=== PATIENT | male | born 1975 | race Two or more races ===

== ENCOUNTER 2021-02-16 19:16 | Emergency (ER) | payer OTHER ==
[~2021-02-16] VITALS: Ht 188 cm; Wt 95.4 kg
[2021-02-16 19:25] VITALS: BP 143/93
[2021-02-16] MEDS ORDERED: LIDOCAINE 1%/EPI 1:100,000 20 ML VIAL. INJ ONE (19:45)
--- NOTE | 2021-02-16 19:53 | PHYS DOC ---
Past Medical History Past Medical History: No Pertinent History (AURA CARRIZALES APRN) Past Surgical History: No Surgical History (AURA CARRIZALES APRN) General Adult EDM: Chief Complaint: LACERATION/AVULSION HPI: HPI: Patient is a 46-year-old male that presents today with a laceration on his left foot. Patient states he was walking barefoot into his kitchen area he said there was a knife on the floor and he rubbed up against that thus cutting his foot. Currently no uncontrolled hemorrhaging noted. Patient states he does not know when his last tetanus shot was. 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 [] Eyes: Denies change in visual acuity. [] HENT: Denies nasal congestion or sore throat. [] Respiratory: Denies cough or shortness of breath. [] Cardiovascular: Denies chest pain or edema. [] GI: Denies abdominal pain, nausea, vomiting, bloody stools or diarrhea. [] : Denies dysuria. [] Musculoskeletal: Denies back pain or joint pain. [] Integument: Laceration left foot Neurologic: Denies headache, focal weakness or sensory changes. [] Endocrine: Denies polyuria or polydipsia. [] Lymphatic: Denies swollen glands. [] Psychiatric: Denies depression or anxiety. [] (AURA CARRIZALES PRODUCT DEVELOPMENT WORKER) Heart Score: C/O Chest Pain: N/A Risk Factors: Risk Factors: DM, Current or recent (<one month) smoker, HTN, HLP, family history of CAD, obesity. Risk Scores: Score 0 - 3: 2.5% MACE over next 6 weeks - Discharge Home Score 4 - 6: 20.3% MACE over next 6 weeks - Admit for Clinical Observation Score 7 - 10: 72.7% MACE over next 6 weeks - Early Invasive Strategies (AURA CARRIZALES PRODUCT DEVELOPMENT WORKER) Current Medications: Current Medications Medications (Trade) Dose Ordered Sig/Robbi Start Time Stop Time Status Last Admin Dose Admin Diphtheria/ Tetanus/Acell Pertussis (ADACEL TDap SYRINGE) 0.5 ml ONCE ONCE 02/16/21 20:00 02/16/21 20:01 UNV Lidocaine/ Epinephrine (LIDOCAINE 1%-EPI 1:100,000 Multi-Dose) 20 ml 1X ONCE 02/16/21 19:45 02/16/21 19:46 DC (AURA CARRIZALES APRN) Allergies: Allergies: Allergies Coded Allergies Type Severity Reaction Last Updated Verified No Known Drug Allergies 02/16/21 No (AURA CARRIZALES APRN) Physical Exam: PE: Constitutional: Well developed, well nourished, no acute distress, non-toxic appearance. [] HENT: Normocephalic, atraumatic, bilateral external ears normal, oropharynx moist, no oral exudates, nose normal. [] Eyes: PERRLA, EOMI, conjunctiva normal, no discharge. [] Neck: Normal range of motion, no tenderness, supple, no stridor. [] Cardiovascular:Heart rate regular rhythm, no murmur [] Lungs & Thorax: Bilateral breath sounds clear to auscultation [] Abdomen: Bowel sounds normal, soft, no tenderness, no masses, no pulsatile masses. [] Skin: Warm, dry, no erythema, no rash. [] Back: No tenderness, no CVA tenderness. [] Extremities: 2 cm laceration noted on the lateral aspect of the left foot, no uncontrolled hemorrhaging noted, neurovascular intact distal to that injury. Patient is able to ambulate on the foot Neurologic: Alert and oriented X 3, normal motor function, normal sensory function, no focal deficits noted. [] Psychologic: Affect normal, judgement normal, mood normal. [] (AURA CARRIZALES APRN) EKG: EKG: [] (AURA CARRIZALES APRN) Radiology/Procedures: Radiology/Procedures: Indication: [Laceration lateral left foot Procedure: The patient was placed in the appropriate position and lidocaine 1% with epinephrine was used to anesthetize the area, after appropriate anesthesia was obtained area was cleansed with Betadine solution, irrigated with approximately 120 mL of normal saline, using 3-0 Ethilon 6 interrupted sutures were placed in the wound. Dressing was placed by nursing staff. Total repaired wound length: 2cm The patient tolerated the procedure well Complications: No complications (AURA CARRIZALES APRN) Course & Med Decision Making: Course & Med Decision Making Pertinent Labs and Imaging studies reviewed. (See chart for details) Sutures placed dressing applied. Patient is to clean wound twice daily with mild cleansing soap watch for any signs and symptoms of infection. Sutures out in 12 to 14 days (AURA CARRIZALES APRN) Course & Med Decision Making Patients Care and treatment plan provided by ER Nurse Practitioner. I was available for consult. Patient's chart reviewed. (OCTAVIO MUNOZ DO) Dragon Disclaimer: Dragon Disclaimer: This electronic medical record was generated, in whole or in part, using a voice recognition dictation system. (AURA CARRIZALES APRN) Departure Departure Impression: Primary Impression: Foot laceration Qualified Codes: S91.312A - Laceration without foreign body, left foot, initial encounter Disposition: HOME / SELF CARE / HOMELESS Condition: STABLE Patient Instructions: Laceration Care, Adult Additional Instructions: Keep wound clean and dry may cover while at work Clean the wound twice daily with mild cleansing soap and water Watch for any signs and symptoms of infection which may include increasing pain, swelling, redness, or foul smelling drainage Sutures out in 12 to 14 days you may return to the emergency department to have your sutures removed or follow-up with your primary care physicians or one of the clinics provided to have those removed. AURA CARRIZALES APRN Feb 16, 2021 19:52 OCTAVIO MUNOZ DO Feb 17, 2021 19:37
[2021-02-16] MEDS ORDERED: DIPH,PERTUSS(ACELL),TET VAC/PF 0.5 ML SYRINGE. VAX IM ONE (20:00)
== END 2021-02-16 20:53 | disposition home or self-care (01) ==
LOC: ER 19:16
DX: S91.312A Laceration without foreign body, left foot, initial encounter (principal); W26.0XXA Contact with knife, initial encounter; Y93.01 Activity, walking, marching and hiking; Y92.89 Other specified places as the place of occurrence of the external cause; Y99.8 Other external cause status
CPT/HCPCS: 12001; 90471; 90715; 99283; J3490

== ENCOUNTER 2021-03-01 15:33 | Emergency (ER) | payer OTHER ==
[~2021-03-01] VITALS: Ht 188 cm; Wt 95.4 kg
[2021-03-01 16:28] VITALS: BP 167/97
--- NOTE | 2021-03-01 16:42 | PHYS DOC ---
Past Medical History Past Medical History: No Pertinent History Past Surgical History: No Surgical History Additional Past Surgical Histo: lower back Smoking Status: Never Smoker Alcohol Use: None General Adult EDM: Chief Complaint: SUTURE/STAPLE REMOVAL HPI: HPI: Patient is a 46-year-old male who presents to the emergency department today for suture removal. Patient reports that he had sutures placed on the lateral aspect of his left foot 13 days ago in this ER after he cut his foot with a knife. Patient denies any pain, signs of infection or decreased range of motion. Review of Systems: Review of Systems: Constitutional: See HPI Musculoskeletal: See HPI Integument: See HPI Neurologic: See HPI Heart Score: C/O Chest Pain: N/A Risk Factors: Risk Factors: DM, Current or recent (<one month) smoker, HTN, HLP, family history of CAD, obesity. Risk Scores: Score 0 - 3: 2.5% MACE over next 6 weeks - Discharge Home Score 4 - 6: 20.3% MACE over next 6 weeks - Admit for Clinical Observation Score 7 - 10: 72.7% MACE over next 6 weeks - Early Invasive Strategies Allergies: Allergies: Allergies Coded Allergies Type Severity Reaction Last Updated Verified No Known Drug Allergies 03/01/21 No Physical Exam: PE: Constitutional: Well developed, well nourished, no acute distress, non-toxic appearance. [] HENT: Normocephalic, atraumatic Eyes: PERRL, EOMI, conjunctiva normal, no discharge. [] Neck: Normal range of motion, no stridor Cardiovascular: Normal peripheral perfusion Lungs & Thorax: Normal work of breathing, no tachypnea Abdomen: Soft and flat Skin: Warm, dry, no erythema, no rash, patient was noted to have 4 sutures i ntact to the lateral aspect of his left foot, wound is well approximated and there are no surrounding signs of infection like redness, warmth, swelling or drainage. Patient is neurovascularly intact and has normal range of motion.. [] Back: Normal range of motion Extremities: No tenderness, no cyanosis, no clubbing, ROM intact, no edema. [] Neurologic: Alert and oriented X 3, normal motor function, normal sensory function, no focal deficits noted. [] Psychologic: Affect normal, judgement normal, mood normal. [] Current Patient Data: Vital Signs: Vital Signs Date Time Temp Pulse Resp B/P (MAP) Pulse Ox O2 Delivery O2 Flow Rate FiO2 03/01/21 16:28 98.6 81 16 167/97 (120) 95 Room Air 98.6 EKG: EKG: [] Radiology/Procedures: Radiology/Procedures: [] Course & Med Decision Making: Course & Med Decision Making Pertinent Labs and Imaging studies reviewed. (See chart for details) [] Patient presents to the emergency department for suture removal. Patient has 4 sutures noted to the lateral aspect of his left foot. Wound is well appr oximated and there are no surrounding signs of infection, patient is neurovascularly intact and has normal range of motion. Sutures were removed, patient tolerated procedure. Patient advised to continue to use Polysporin ointment and monitor for signs of infection. I discussed with patient all findings as well as the need to follow-up with PCP for further evaluation and treatment or return to the ER if any new or worsening symptoms. Strict return precautions were also discussed at length. Patient voiced understanding and agreement with the plan. Patient is hemodynamically stable at the time of disposition. [place] Disclaimer: El Disclaimer: This electronic medical record was generated, in whole or in part, using a voice recognition dictation system. Departure Departure Impression: Primary Impression: Visit for suture removal Disposition: HOME / SELF CARE / HOMELESS Condition: GOOD Referrals: UNKNOWN PCP NAME (PCP) Patient Instructions: Suture Removal Additional Instructions: You were seen in the emergency department today for suture removal. You had the sutures removed in your wound looks like it is healing well without any signs of infection. Please continue to place Polysporin ointment on it and monitor for any signs of infection like redness, warmth, swelling or drainage. If you still have pain you can take Tylenol and/or ibuprofen. Please follow-up with your primary care provider as needed. Please return to the emergency department if you have any new or worsening concerns. ZAK [employer] Mar 01, 2021 16:42
== END 2021-03-01 17:00 | disposition home or self-care (01) ==
LOC: ER 15:33
DX: S91.312D Laceration without foreign body, left foot, subsequent encounter (principal); X58.XXXD Exposure to other specified factors, subsequent encounter
CPT/HCPCS: 99282